=== PATIENT | male | born 1965 | race Two or more races ===

== ENCOUNTER → 2022-11-26 | Outpatient (CLI) | payer OTHER ==
[2022-11-26 17:25] LABS: BASOPHILS ABSOLUTE AUTO 0.04 K/mm3 (0.00-0.23); BASOPHILS PERCENT AUTO 1 % (0-2); EOSINOPHILS ABSOLUTE AUTO 0.17 K/mm3 (0.00-0.68); EOSINOPHILS PERCENT AUTO 3 % (0-6); Hematocrit 43.1 % (37.0-53.0); Hemoglobin 15.2 g/dL (13.5-17.5); IMMATURE GRAN ABSOLUTE AUTO 0.05 K/mm3 (0.00-0.10); IMMATURE GRAN PERCENT AUTO 1 % (0-1); LYMPHOCYTES PERCENT AUTO 21 % (21-46); MONOCYTES ABSOLUTE AUTO 0.42 K/mm3 (0.16-1.47); MONOCYTES PERCENT AUTO 7 % (4-13); Mean Corpuscular HGB 30.8 pg (26.0-34.0); Mean Corpuscular HGB Conc 35.3 g/dL (31.5-36.5); Mean Corpuscular Volume 87 fL (80-100); Mean Platelet Volume 11.2 fL (9.1-12.4); NEUTROPHILS ABSOLUTE AUTO 4.35 K/mm3 (1.96-9.15); NEUTROPHILS PERCENT AUTO 69 % (41-73); Platelet Count 230 K/mm3 (150-400); RDW Coefficient Variation 12.5 % (11.7-14.2); RDW Standard Deviation 39.5 fL (35.1-46.3); Red Blood Cell Count 4.93 M/mm3 (4.30-5.90); White Blood Cell Count 6.33 K/mm3 (4.00-11.30)
[2022-11-27 15:28] LABS: Alanine Aminotransfer (ALT/SGP 19 U/L (12-78); Albumin, Blood 3.7 g/dL (3.4-5.0); Albumin/Globulin Ratio 1.1 (0.8-1.8); Alk Phos 62 U/L (50-136); Anion Gap 4 mmol/L (6-16); Aspartate Aminotrans (AST/SGOT 6 U/L (12-37); Bilirubin, Total 1.3 mg/dL (0.1-1.0); Blood Urea Nitrogen 12 mg/dL (8-24); Bun/Creatinine Ratio 14.4 (12.0-20.0); CHOL/HDL RATIO 4.4; CO2, Blood 30 mmol/L (21-32); Chloride, Blood 103 mmol/L (98-108); Cholesterol 194 mg/dL (50-200); Creatinine, Blood 0.84 mg/dL (0.60-1.20); Globulin, Blood 3.5 g/dL (2.2-4.0); Glomerular Filtration Rate 103 (60-); Glucose, Blood 363 mg/dL (70-99); HDL Cholesterol 44 mg/dL (>39); LDL/HDL RATIO 2.2; Low Density Lipoprotein Chol 96 mg/dL (0-110); Potassium, Blood 3.6 mmol/L (3.5-5.5); Sodium, Blood 137 mmol/L (136-145); Total Protein, Blood 7.2 g/dL (6.4-8.2); Triglycerides 270 mg/dL (30-160); Very Low Density Lipoprot Chol 54 mg/dL (6-32)
== END ==
LOC: LAB SHORT 16:39 → LAB 16:39
PROVIDERS: Student in an Organized Health Care Education/Training Program
DX: E11.65 Type 2 diabetes mellitus with hyperglycemia (principal)
CPT/HCPCS: 80053; 80061; 83036; 85025

== ENCOUNTER 2023-08-30 18:58 | Observation (INO) | payer OTHER ==
[~2023-08-30] VITALS: Ht 177.8 cm; Wt 83.0 kg
[2023-08-30 19:25] LABS: BASOPHILS ABSOLUTE AUTO 0.03 K/mm3 (0.00-0.23); BASOPHILS PERCENT AUTO 0 % (0-2); EOSINOPHILS PERCENT AUTO 0 % (0-6); Hematocrit 37.9 % (37.0-53.0); Hemoglobin 13.5 g/dL (13.5-17.5); IMMATURE GRAN ABSOLUTE AUTO 0.05 K/mm3 (0.00-0.10); IMMATURE GRAN PERCENT AUTO 0 % (0-1); LYMPHOCYTES ABSOLUTE AUTO 1.06 K/mm3 (0.84-5.20); LYMPHOCYTES PERCENT AUTO 9 % (21-46); MONOCYTES ABSOLUTE AUTO 1.18 K/mm3 (0.16-1.47); MONOCYTES PERCENT AUTO 10 % (4-13); Mean Corpuscular HGB 30.2 pg (26.0-34.0); Mean Corpuscular HGB Conc 35.6 g/dL (31.5-36.5); Mean Corpuscular Volume 85 fL (80-100); NEUTROPHILS ABSOLUTE AUTO 9.76 K/mm3 (1.96-9.15); NEUTROPHILS PERCENT AUTO 81 % (41-73); Platelet Count 309 K/mm3 (150-400); RDW Coefficient Variation 11.8 % (11.7-14.2); RDW Standard Deviation 36.4 fL (35.1-46.3); Red Blood Cell Count 4.47 M/mm3 (4.30-5.90); White Blood Cell Count 12.08 K/mm3 (4.00-11.30)
[2023-08-30 19:43] LABS: Albumin/Globulin Ratio 0.6 (0.8-1.8); Bilirubin, Total 5.4 mg/dL (0.1-1.0); Bun/Creatinine Ratio 24.8 (12.0-20.0); Creatinine, Blood 0.77 mg/dL (0.60-1.20); Globulin, Blood 4.8 g/dL (2.2-4.0); Potassium, Blood 3.3 mmol/L (3.5-5.5); Total Protein, Blood 7.8 g/dL (6.4-8.2)
[2023-08-30] MEDS ORDERED: NS 1,000 ML IV SCH (23:40)
[2023-08-31] LABS: Bicarbonate Venous 31.2 mmol/L (24.0-30.0); PCO2 Venous 46.8 mmHg (38-42); pH Blood Venous 7.45 (7.34-7.37)
[2023-08-31 00:01] LABS: Base Excess Venous 8.6 mmol/L
[2023-08-31 00:20] LABS: C-REACTIVE PROTEIN, EXT RANGE 9.93 mg/dL (0.000-0.300)
[2023-08-31] MEDS ORDERED: CefTRIAXone Sodium 1,000 MG in NS 50 ML IV ONE (01:00)
[2023-08-31] MEDS ORDERED: MetroNIDAZOLE 500MG/NS 100 ml 100 ML IV ONE (02:30)
[2023-08-31] MEDS ORDERED: NS 1,000 ML IV SCH ×2 (02:30→04:25)
[2023-08-31] MEDS ORDERED: Magnesium Hydroxide Conc 10 ML UDC PO PRN (04:25)
[2023-08-31] MEDS ORDERED: Acetaminophen 325 MG TABLET PO PRN (04:25)
[2023-08-31 04:31] LABS: BASOPHILS ABSOLUTE AUTO 0.03 K/mm3 (0.00-0.23); BASOPHILS PERCENT AUTO 0 % (0-2); EOSINOPHILS ABSOLUTE AUTO 0.02 K/mm3 (0.00-0.68); EOSINOPHILS PERCENT AUTO 0 % (0-6); Hematocrit 35.9 % (37.0-53.0); Hemoglobin 12.5 g/dL (13.5-17.5); IMMATURE GRAN ABSOLUTE AUTO 0.05 K/mm3 (0.00-0.10); IMMATURE GRAN PERCENT AUTO 1 % (0-1); LYMPHOCYTES PERCENT AUTO 14 % (21-46); MONOCYTES ABSOLUTE AUTO 0.79 K/mm3 (0.16-1.47); MONOCYTES PERCENT AUTO 10 % (4-13); Mean Corpuscular HGB 30.1 pg (26.0-34.0); Mean Corpuscular HGB Conc 34.8 g/dL (31.5-36.5); Mean Corpuscular Volume 87 fL (80-100); NEUTROPHILS ABSOLUTE AUTO 5.81 K/mm3 (1.96-9.15); NEUTROPHILS PERCENT AUTO 75 % (41-73); Platelet Count 266 K/mm3 (150-400); RDW Standard Deviation 38.4 fL (35.1-46.3); Red Blood Cell Count 4.15 M/mm3 (4.30-5.90)
[2023-08-31 04:48] LABS: Magnesium, Blood 2.1 mg/dL (1.6-2.4)
[2023-08-31 04:50] LABS: Albumin, Blood 2.8 g/dL (3.4-5.0); Albumin/Globulin Ratio 0.6 (0.8-1.8); Bilirubin, Total 3.9 mg/dL (0.1-1.0); Bun/Creatinine Ratio 25.4 (12.0-20.0); Calcium, Blood 9.4 mg/dL (8.5-10.1); Creatinine, Blood 0.79 mg/dL (0.60-1.20); Globulin, Blood 4.5 g/dL (2.2-4.0); Potassium, Blood 3.2 mmol/L (3.5-5.5); Total Protein, Blood 7.3 g/dL (6.4-8.2)
[2023-08-31] MEDS ORDERED: Insulin Human Lispro 100 Units/ML 3ML Syringe SC SCH (06:00)
[2023-08-31] MEDS ORDERED: Insulin Glargine-Yfgn 100 Unit/mL 3 ML SYR SC SCH ×2 (06:00→07:00)
[2023-08-31 06:22] LABS: Glucose, Blood 433 mg/dL (70-99)
[2023-08-31] MEDS ORDERED: FentaNYL Citrate 50 MCG/ML 2 ML Injection IV PRN (06:30)
[2023-08-31] MEDS ORDERED: Ampicillin Sod/Sulbactam Sod 3 GM in NS 100 ML IV SCH (06:38)
[2023-08-31] MEDS ORDERED: CefTRIAXone Sodium 1,000 MG in NS 100 ML IV ONE (07:40)
[2023-08-31 08:29] LABS: CHOL/HDL RATIO 2.6; Cholesterol 92 mg/dL (50-200); HDL Cholesterol 36 mg/dL (>39); LDL/HDL RATIO 0.9; Low Density Lipoprotein Chol 32 mg/dL (0-110); Triglycerides 118 mg/dL (30-160); Very Low Density Lipoprot Chol 23 mg/dL (6-32)
[2023-08-31] MEDS ORDERED: NS 1,000 ML IV ONE (09:29)
[2023-08-31] MEDS ORDERED: Lactated Ringer's 1,000 ML IV SCH (10:45)
[2023-08-31] MEDS ORDERED: MetroNIDAZOLE 500MG/NS 100 ml 100 ML IV SCH (11:00)
[2023-08-31] MEDS ORDERED: Insulin Human Lispro 100 Units/ML 3ML Syringe SC ONE (11:00)
[2023-08-31 14:05] VITALS: BP 135/94
[2023-08-31 17:18] VITALS: BP 136/94
[2023-08-31] MEDS ORDERED: Medihoney Topical 44 ML TOP SCH (18:00)
--- NOTE | 2023-08-31 18:17 | NUR ---
SHIFT SUMMARY PATIENT ADMITTED FROM ER THIS SHIFT. A/O X4, PLEASANT BUT SEEMS SOMEWHAT DEPRESSED. MAKING STATEMENTS THAT HE HAS GIVEN UP ON HIS HEALTH, IT'S TOO HARD TO MANAGE HIS DIABETES, MAKING STATEMENTS OF MARITAL ISSUES INTERFERRING WITH HIS ABILITY TO CARE ABOUT HIS HEALTH. WOUND TO RIGHT GREAT TOE, OPEN WITH SMALL CENTRAL SCABBED AREA, SURROUNDING TISSUE HAS BEEN DEBRIDED IN ER. NO C/O PAIN TO ABD OR FOOT. FLUIDS INFUSING. ABLE TO MAKE NEEDS KNOWN. CALL LIGHT IN REACH. CARES ONGOING.
[2023-08-31 19:49] VITALS: BP 119/85
[2023-09-01 03:31] VITALS: BP 134/88
[2023-09-01 04:20] LABS: BASOPHILS ABSOLUTE AUTO 0.05 K/mm3 (0.00-0.23); BASOPHILS PERCENT AUTO 1 % (0-2); EOSINOPHILS ABSOLUTE AUTO 0.13 K/mm3 (0.00-0.68); EOSINOPHILS PERCENT AUTO 2 % (0-6); Hemoglobin 11.8 g/dL (13.5-17.5); IMMATURE GRAN ABSOLUTE AUTO 0.05 K/mm3 (0.00-0.10); IMMATURE GRAN PERCENT AUTO 1 % (0-1); LYMPHOCYTES ABSOLUTE AUTO 1.48 K/mm3 (0.84-5.20); LYMPHOCYTES PERCENT AUTO 21 % (21-46); MONOCYTES ABSOLUTE AUTO 0.68 K/mm3 (0.16-1.47); MONOCYTES PERCENT AUTO 10 % (4-13); Mean Corpuscular HGB Conc 33.7 g/dL (31.5-36.5); Mean Corpuscular Volume 89 fL (80-100); Mean Platelet Volume 10.9 fL (9.1-12.4); NEUTROPHILS ABSOLUTE AUTO 4.64 K/mm3 (1.96-9.15); NEUTROPHILS PERCENT AUTO 66 % (41-73); Platelet Count 240 K/mm3 (150-400); RDW Coefficient Variation 11.9 % (11.7-14.2); RDW Standard Deviation 38.6 fL (35.1-46.3); Red Blood Cell Count 3.93 M/mm3 (4.30-5.90); White Blood Cell Count 7.03 K/mm3 (4.00-11.30)
--- NOTE | 2023-09-01 04:32 | NUR ---
SHIFT SUMMARY PATIENT HAD NO ACUTE CHANGES. AXOX 4 AND INDEPENDENT IN ROOM. DENIES CHEST PAIN, SOB, AND N/V. PIV REMAINS INTACT. NS INFUSING @ 100 mL/HR. CBG 244. VSS/AFEBRILE. WOUND TO RIGHT GREAT TOE OPEN TO AIR. WILL CALL APPROPRIATELY. CALL LIGHT IN REACH. BED IN LOWEST POSITION. WILL CONTINUE TO MONITOR UNTIL DAY SHIFT NURSE ASSUMES CARE.
[2023-09-01 04:40] LABS: Albumin, Blood 2.5 g/dL (3.4-5.0); Albumin/Globulin Ratio 0.6 (0.8-1.8); Bun/Creatinine Ratio 27.5 (12.0-20.0); Calcium, Blood 8.7 mg/dL (8.5-10.1); Creatinine, Blood 0.58 mg/dL (0.60-1.20); Potassium, Blood 2.9 mmol/L (3.5-5.5); Total Protein, Blood 6.5 g/dL (6.4-8.2)
[2023-09-01 07:24] VITALS: BP 126/86
[2023-09-01] MEDS ORDERED: Potassium Chloride 20 MEQ TabCR PO ONE ×2 (08:00→11:30)
[2023-09-01] MEDS ORDERED: CefTRIAXone Sodium 2,000 MG in NS 100 ML IV SCH (10:30)
[2023-09-01] MEDS ORDERED: SULFAMETHOXAZO1 EAC1 PO (14:13)
[2023-09-01] MEDS ORDERED: GABA300 PO (14:43)
[2023-09-01] MEDS ORDERED: ATOR40TA PO (14:43)
[2023-09-01] MEDS ORDERED: Actos30 MG PO (14:44)
[2023-09-01] MEDS ORDERED: AMLODIPINE-BEN1 EAC3 PO (14:48)
[2023-09-01] MEDS ORDERED: HYDCHL25 PO (14:49)
[2023-09-01] MEDS ORDERED: BASAGLAR K100 UNIT/3 SC (14:59)
[2023-09-01] MEDS ORDERED: Viagra100 MG PO (15:09)
[2023-09-01] MEDS ORDERED: AMOCLA875 PO (15:26)
[2023-09-01] MEDS ORDERED: MEDIHONEY TOP (15:28)
--- NOTE | 2023-09-01 18:25 | NUR ---
DISCHARGE PT DISCHARGED HOME. THIS RN EXPLAINED DISCHARGE INSTRUCTIONS AND MEDICATIONS TO PT AND HE REPORTS HE UNDERSTANDS. IV REMOVED WITHOUT DIFFICULTY. PT LEFT ROOM WITHOUT LETTING THIS RN KNOW AND NO BELONGINGS NOTED IN ROOM.
== END 2023-09-01 18:09 | disposition home or self-care (01) ==
LOC: ER 18:58 → MEDS 18:59 → ERHOLD 08-31 04:23 → ER 08-31 04:23 → MEDS 08-31 04:23 → ERHOLD 08-31 14:00 → MEDS 09-01 18:09
PROVIDERS: Family Medicine; Internal Medicine; Student in an Organized Health Care Education/Training Program; ADMIT Internal Medicine
DX: E11.621 Type 2 diabetes mellitus with foot ulcer (principal); L97.519 Non-pressure chronic ulcer of other part of right foot with unspecified severity; K80.00 Calculus of gallbladder with acute cholecystitis without obstruction; E80.6 Other disorders of bilirubin metabolism; A41.9 Sepsis, unspecified organism; E11.65 Type 2 diabetes mellitus with hyperglycemia; K76.0 Fatty (change of) liver, not elsewhere classified; Z79.4 Long term (current) use of insulin; Z79.899 Other long term (current) drug therapy
CPT/HCPCS: 36415; 73660; 74177; 74181; 76705; 80053; 80061; 82010; 82248; 82803; 82947; 83036; 83605; 83735; 85025; 85651; 86140; 87040; 96361; 96365-59; 96367; 99285-25; A9270; G0378; J0696; J1815; J7030; Q9967

== ENCOUNTER 2023-09-25 01:49 | Day surgery (SDC) | payer OTHER ==
[~2023-09-25 01:49] MED LIST: AMLODIPINE-BEN1 EAC3 PO; AMOCLA875 PO; ATOR40TA PO; Actos30 MG PO; BASAGLAR K100 UNIT/3 SC; GABA300 PO; HYDCHL25 PO; MEDIHONEY TOP; SULFAMETHOXAZO1 EAC1 PO; Viagra100 MG PO
[2023-09-25] MEDS ORDERED: Lidocaine HCl 4% Cream 5 GM ONE (13:14)
== END 2023-09-25 22:46 | disposition home or self-care (01) ==
LOC: WOUND 01:49
DX: E11.621 Type 2 diabetes mellitus with foot ulcer (principal); L97.512 Non-pressure chronic ulcer of other part of right foot with fat layer exposed; E11.40 Type 2 diabetes mellitus with diabetic neuropathy, unspecified; E11.65 Type 2 diabetes mellitus with hyperglycemia; E11.51 Type 2 diabetes mellitus with diabetic peripheral angiopathy without gangrene; I10 Essential (primary) hypertension; I87.2 Venous insufficiency (chronic) (peripheral); M19.90 Unspecified osteoarthritis, unspecified site; J45.909 Unspecified asthma, uncomplicated; Z88.8 Allergy status to other drugs, medicaments and biological substances
CPT/HCPCS: A9270; G0463

== ENCOUNTER 2023-10-02 03:11 | Day surgery (SDC) | payer OTHER ==
[2023-10-02] MEDS ORDERED: Lidocaine HCl 4% Cream 5 GM ONE (10:42)
== END 2023-10-02 22:58 | disposition home or self-care (01) ==
LOC: WOUND 03:11
DX: E11.621 Type 2 diabetes mellitus with foot ulcer (principal); L97.512 Non-pressure chronic ulcer of other part of right foot with fat layer exposed; E11.65 Type 2 diabetes mellitus with hyperglycemia; E11.51 Type 2 diabetes mellitus with diabetic peripheral angiopathy without gangrene; I87.2 Venous insufficiency (chronic) (peripheral); E11.40 Type 2 diabetes mellitus with diabetic neuropathy, unspecified
CPT/HCPCS: A9270

== ENCOUNTER 2023-10-10 03:48 | Day surgery (SDC) | payer OTHER ==
[2023-10-10] MEDS ORDERED: Lidocaine HCl 4% Cream 5 GM ONE (14:31)
== END 2023-10-10 23:07 | disposition home or self-care (01) ==
LOC: WOUND 03:48
DX: E11.621 Type 2 diabetes mellitus with foot ulcer (principal); L97.512 Non-pressure chronic ulcer of other part of right foot with fat layer exposed; E11.65 Type 2 diabetes mellitus with hyperglycemia; E11.40 Type 2 diabetes mellitus with diabetic neuropathy, unspecified
CPT/HCPCS: A9270

== ENCOUNTER 2023-11-07 01:44 | Day surgery (SDC) | payer OTHER | END 2023-11-07 23:12 | disposition home or self-care (01) | LOC: WOUND 01:44 | DX: E11.621 Type 2 diabetes mellitus with foot ulcer (principal); L97.512 Non-pressure chronic ulcer of other part of right foot with fat layer exposed; E11.65 Type 2 diabetes mellitus with hyperglycemia; E11.51 Type 2 diabetes mellitus with diabetic peripheral angiopathy without gangrene; I87.2 Venous insufficiency (chronic) (peripheral) | CPT/HCPCS: A6196; G0463 ==

== ENCOUNTER 2023-11-14 01:57 | Day surgery (SDC) | payer OTHER ==
[2023-11-14] MEDS ORDERED: Silver Nitr/Potassium Nitrate 1 EA APPL ONE (08:47)
== END 2023-11-14 23:33 | disposition home or self-care (01) ==
LOC: WOUND 01:57
DX: E11.621 Type 2 diabetes mellitus with foot ulcer (principal); L97.512 Non-pressure chronic ulcer of other part of right foot with fat layer exposed; E11.65 Type 2 diabetes mellitus with hyperglycemia; E11.51 Type 2 diabetes mellitus with diabetic peripheral angiopathy without gangrene; I87.2 Venous insufficiency (chronic) (peripheral)
CPT/HCPCS: A6196; A9270

== ENCOUNTER 2023-12-02 02:41 | Day surgery (SDC) | payer OTHER | END 2023-12-02 23:00 | disposition home or self-care (01) | LOC: WOUND 02:41 | DX: E11.621 Type 2 diabetes mellitus with foot ulcer (principal); L97.512 Non-pressure chronic ulcer of other part of right foot with fat layer exposed; E11.40 Type 2 diabetes mellitus with diabetic neuropathy, unspecified; E11.65 Type 2 diabetes mellitus with hyperglycemia; E11.51 Type 2 diabetes mellitus with diabetic peripheral angiopathy without gangrene; I87.2 Venous insufficiency (chronic) (peripheral) | CPT/HCPCS: G0463 ==